=== PATIENT | female | born 1995 | race American Indian/Alaskan Native ===

== ENCOUNTER 2018-07-07 19:48 | Emergency (ER) | payer MEDICAID ==
[~2018-07-07] VITALS: Ht 157.5 cm; Wt 111.0 kg
[2018-07-07 20:12] VITALS: BP 148/111
== END 2018-07-07 22:01 | disposition home or self-care (01) ==
LOC: ER 19:49
DX: J06.9 Acute upper respiratory infection, unspecified (principal); Z88.0 Allergy status to penicillin; Z88.1 Allergy status to other antibiotic agents; Z98.890 Other specified postprocedural states
CPT/HCPCS: 99281

== ENCOUNTER 2023-08-01 18:32 | Emergency (ER) | payer MEDICAID, OTHER ==
[~2023-08-01] VITALS: Ht 160 cm; Wt 113.2 kg
[~2023-08-01 18:32] MED LIST: CLIN-214 PO
[2023-08-01 19:10] LABS: URINE HCG NEGATIVE (NEG)
[2023-08-01 19:16] LABS: BILIRUBIN,URINE NEGATIVE (Neg); CLARITY,URINE SLIGHTLY CLOUDY (Clear); COLOR,URINE YELLOW (Yellow); GLUCOSE, URINE NEGATIVE (Neg); KETONES,URINE NEGATIVE (Neg); LEUKOCYTE ESTERASE ,URINE SMALL (Neg); NITRITES, URINE NEGATIVE (Neg); OCCULT BLOOD,URINE NEGATIVE (Neg); PH,URINE 6.5 (4.8-8.0); PROTEIN,URINE NEGATIVE (Neg)
[2023-08-01 19:22] LABS: SQUAMOUS EPITHELIAL CELL,UR MANY /LPF (FEW); UA COLLECTION TYPE CLN CATCH MIDSTREAM
[2023-08-01 19:23] LABS: MUCUS STRANDS MANY /LPF (Neg); RBC,URINE NONE SEEN /HPF (0-2); WBC,URINE 20-30 /HPF (0-4)
[2023-08-01 19:24] LABS: BACTERIA,URINE 3+ /HPF (Neg)
[2023-08-01 21:53] LABS: BASOPHILS # (AUTO) 0.1 X10'3 (0-0.2); BASOPHILS % (AUTO) 0.6 % (0-1); EOSINOPHILS # (AUTO) 0.2 X10'3 (0-0.9); EOSINOPHILS % (AUTO) 2.7 % (0-6); HEMATOCRIT 44.9 % (35.0-45.0); HEMOGLOBIN 14.8 g/dl (12.0-16.0); LYMPHOCYTES # (AUTO) 2.4 X10'3 (1.1-4.8); LYMPHOCYTES % (AUTO) 27.3 % (21-51); MEAN CORPUSCULAR HEMOGLOBIN 28.9 PG (27.0-31.0); MEAN CORPUSCULAR VOLUME 87.5 FL (78-98); MEAN PLATELET VOLUME 9.5 FL (7.4-10.4); MONOCYTES # (AUTO) 0.7 X10'3 (0-0.9); MONOCYTES % (AUTO) 7.8 % (2-12); NEUTROPHILS # (AUTO) 5.5 X10'3 (1.8-7.7); NEUTROPHILS % (AUTO) 61.6 % (42-75); PLATELET COUNT 241 X10'3 (140-440); RED BLOOD COUNT 5.14 X10'6 (4.20-5.60); RED CELL DISTRIBUTION WIDTH 14.1 % (11.5-14.5)
[2023-08-01 22:11] LABS: ALANINE AMINOTRANSFERASE 37 U/L (12-78); ALBUMIN/GLOBULIN RATIO 0.8 (1.1-1.5); ALKALINE PHOSPHATASE 63 IU/L (46-116); ANION GAP 9 (8-16); ASPARTATE AMINO TRANSFERASE 25 U/L (10-37); BILIRUBIN,TOTAL 0.3 MG/DL (0.1-1.0); BLOOD UREA NITROGEN 13 MG/DL (7-18); BUN/CREATININE RATIO 14.1 (10.0-20.0); CALCIUM 9.5 MG/DL (8.5-10.1); CHLORIDE 104 MMOL/L (99-107); CREATININE 0.92 MG/DL (0.40-0.90); GLUCOSE 115 MG/DL (70-104); LIPASE 39 U/L (16-77); POTASSIUM 3.7 MMOL/L (3.5-5.1); SODIUM 140 MMOL/L (135-145); TOTAL CARBON DIOXIDE 27.1 MMOL/L (24-32); TOTAL PROTEIN 9.1 G/DL (6.4-8.2); eCRCL 75 ML/MIN; eGFR 73 ML/MIN
[2023-08-01 23:56] VITALS: TEMP 99.2
[2023-08-01] MEDS ORDERED: CEPH-585 PO (23:57)
[2023-08-02 00:11] VITALS: BP 132/99; PULSE 84; RESP 18; O2SAT 98
== END 2023-08-02 00:18 | disposition home or self-care (01) ==
LOC: ER 18:33
DX: N39.0 Urinary tract infection, site not specified (principal); Z87.81 Personal history of (healed) traumatic fracture; Z88.0 Allergy status to penicillin; Z88.1 Allergy status to other antibiotic agents; Z79.899 Other long term (current) drug therapy
CPT/HCPCS: 36415; 80053; 81001; 81025; 83690; 85025; 99283

== ENCOUNTER 2023-09-10 22:24 | Emergency (ER) | payer MEDICAID, OTHER ==
[~2023-09-10] VITALS: Ht 157.5 cm; Wt 117.8 kg
[~2023-09-10 22:24] MED LIST changes: +CEPH-585 PO
[2023-09-10 22:37] VITALS: BP 161/112; PULSE 110; RESP 18; TEMP 98; O2SAT 100
[2023-09-11 01:00] LABS: EOSINOPHILS # (AUTO) 0.2 X10'3 (0-0.9); MEAN PLATELET VOLUME 9.4 FL (7.4-10.4); RED BLOOD COUNT 4.83 X10'6 (4.20-5.60)
[2023-09-11 01:02] LABS: BASOPHILS % (AUTO) 0.4 % (0-1); EOSINOPHILS % (AUTO) 2.6 % (0-6); HEMATOCRIT 41.9 % (35.0-45.0); HEMOGLOBIN 14.2 g/dl (12.0-16.0); LYMPHOCYTES # (AUTO) 2.8 X10'3 (1.1-4.8); LYMPHOCYTES % (AUTO) 33.5 % (21-51); MEAN CORPUSCULAR HEMOGLOBIN 29.4 PG (27.0-31.0); MEAN CORPUSCULAR HGB CONC 33.9 g/dL (33.0-36.5); MEAN CORPUSCULAR VOLUME 86.8 FL (78-98); MONOCYTES # (AUTO) 0.8 X10'3 (0-0.9); MONOCYTES % (AUTO) 9.2 % (2-12); NEUTROPHILS # (AUTO) 4.5 X10'3 (1.8-7.7); NEUTROPHILS % (AUTO) 54.3 % (42-75); PLATELET COUNT 202 X10'3 (140-440); WHITE BLOOD COUNT 8.4 X10'3 (4.5-11.0)
[2023-09-11 01:05] LABS: HCG SERUM QL NEGATIVE
[2023-09-11 01:11] LABS: ALANINE AMINOTRANSFERASE 42 U/L (12-78); ALBUMIN 3.9 G/DL (3.4-5.0); ALBUMIN/GLOBULIN RATIO 0.8 (1.1-1.5); ALKALINE PHOSPHATASE 70 IU/L (46-116); ANION GAP 7 (8-16); ASPARTATE AMINO TRANSFERASE 21 U/L (10-37); BILIRUBIN,TOTAL 0.2 MG/DL (0.1-1.0); BLOOD UREA NITROGEN 15 MG/DL (7-18); BUN/CREATININE RATIO 18.3 (10.0-20.0); CALCIUM 9.2 MG/DL (8.5-10.1); CHLORIDE 107 MMOL/L (99-107); CREATININE 0.82 MG/DL (0.40-0.90); GLUCOSE 90 MG/DL (70-104); POTASSIUM 3.7 MMOL/L (3.5-5.1); SODIUM 144 MMOL/L (135-145); TOTAL CARBON DIOXIDE 29.6 MMOL/L (24-32); TOTAL PROTEIN 8.5 G/DL (6.4-8.2); eCRCL 81 ML/MIN; eGFR 83 ML/MIN
== END 2023-09-11 04:00 | disposition home or self-care (01) ==
LOC: ER 22:25
DX: M54.50 Low back pain, unspecified (principal); Z88.0 Allergy status to penicillin; Z88.1 Allergy status to other antibiotic agents; Z79.2 Long term (current) use of antibiotics
CPT/HCPCS: 36415; 72131; 80053; 84703; 85025; 99284

== ENCOUNTER 2023-12-24 08:36 | Outpatient (CLI) | payer MEDICAID, OTHER ==
[2023-12-24] MEDS ORDERED: iohexol 300mg/ml 100ml inj. ONE (09:03)
== END 2023-12-24 23:59 | disposition home or self-care (01) ==
LOC: RAD 08:36
PROVIDERS: ATTEND Family Medicine
DX: R22.1 Localized swelling, mass and lump, neck (principal)
CPT/HCPCS: 70491; J3490; Q9967

== ENCOUNTER 2025-02-17 10:30 | Emergency (ER) | payer MEDICAID, OTHER ==
[~2025-02-17] VITALS: Ht 160 cm; Wt 116.6 kg
[~2025-02-17 10:30] MED LIST changes: -CEPH-585 PO
[2025-02-17] MEDS ORDERED: SULF1TAB49 PO (11:14)
[2025-02-17] MEDS ORDERED: CEPH-585 PO (11:14)
--- NOTE | 2025-02-17 11:15 | Physician Documentation ---
History of Present Illness ~ Chief Complaint: Bite-insect Stated Complaint: INSECT BITE Time Seen by MD: 10:42 OK to notify your PCP?: Yes Primary Medical Doctor: [facility] Source: patient Mode of Arrival: POV Exam Limitations: no limitations HPI 29 year old female who is here with redness to the back of her left thigh which she states she noticed a few days ago. Patient states she is not sure if she was bit by a spider or another insect. She is currently staying in a hotel. She states that the area of redness is painful. No fever, chills, nausea. Tetanus IZ up to date. Tetanus within 5 years?: Yes (2021) Medication Reconciliation Allergies: Coded Allergies: Penicillins (Verified Allergy, Unknown, 08/01/23) amoxicillin (Verified Allergy, Unknown, 08/01/23) azithromycin (Verified Allergy, Unknown, 08/01/23) Scheduled Cephalexin*Monohydrate* (Keflex*), 1 CAP PO QID Clindamycin HCl (Clindamycin HCl CAPSULE), 1 CAP PO TID Sulfamethoxazole/Trimethoprim (Bactrim Ds Tablet), 1 TAB PO Q12H Past Medical History Past Medical History: *MUSCULOSKELETAL*, Extremity Fracture Past Surgical History: orthopedic surgeries Alcohol Use: None Drug Use: none Lives with: Family Occupation: employed Review of Systems All Other Systems at this time: Reviewed and Negative Physical Exam Vital Signs: Temperature: 98.6, Source: Oral, Heart Rate: 114, Respiratory Rate: 16, BP: 140/104, Pulse Oximetry: 98, Weight: 116.600 Oxygen Flow Rate: 0 Physical Exam General Appearance: Alert, WD/WN. NAD. HEENT: NCAT, PERRL, EOMI. Neck: Supple, trachea midline. Cardiovascular: RRR. No m/r/g. Lungs: CTAB. Breathing unlabored Extremities: Normal inspection. No edema. Skin: Warm/dry, normal color. Left hamstring there is erythematous area measuring about 6cm x 6cm in center of erythema there is area of induration measuring about 1cm in width, no fluctuance, in center of induration there is small crust. Neurological: Alert and oriented x4, normal gait. Psychiatric: Affect congruent with mood. Progress Results/Orders Results/Orders Vital Signs 02/17/25 02/17/25 10:35 11:33 Temp 98.6 98.6 Pulse 114 97 Resp 16 17 B/P (MAP) 140/104 140/86 Pulse Ox 98 99 O2 Flow Rate 0 Medical Decision Making Differential Dx:Considerations: Include: Abrasion, Allergic reaction, Anaphylaxis, Cellulitis, Contusion, Fracture, Hematoma, Insect envenomation, Laceration, Neurovascular injury, Punture wound, Retained foreign body, Urticaria Departure Time of Disposition: 11:15 Disposition: 01 HOME / SELF CARE / HOMELESS Impression: Primary Impression: Cellulitis Qualified Codes: L03.115 - Cellulitis of right lower limb Discharge Instructions: Cellulitis, Adult Additional Instructions: appears mostly cellulitic but there is induration in the center of the redness which can indicate that it is headed towards an abscess i sent antibiotics for both cellulitis and an abscess if worsening return to er, for reassess for possible I&D Referrals: NO PRIMARY CARE PROVIDER (PCP) Prescriptions Sulfamethoxazole/Trimethoprim (Bactrim Ds Tablet) 800 Mg-160 Mg Tablet 1 TAB PO Q12H for 10 Days, #20 TAB Prov: KRISTIAN ROMEO 02/17/25 Cephalexin*Monohydrate* (Keflex*) 500 Mg Capsule 1 CAP PO QID for 10 Days, #40 CAP Prov: KRISTIAN ROMEO 02/17/25 Education Educated: Patient Educated regarding: diagnosis, treatment, need for follow up Signature Scribe Signature: x Attestation: KRISTIAN Sanchez Feb 17, 2025 11:15
[2025-02-17 11:33] VITALS: BP 140/86; PULSE 97; RESP 17; TEMP 98.6; O2SAT 99
== END 2025-02-17 11:34 | disposition home or self-care (01) ==
LOC: ER 10:32
DX: L03.115 Cellulitis of right lower limb (principal); Z88.0 Allergy status to penicillin; Z88.1 Allergy status to other antibiotic agents; Z79.899 Other long term (current) drug therapy
CPT/HCPCS: 99283

== ENCOUNTER 2025-02-18 00:51 | Inpatient (IN) | payer MEDICAID, OTHER ==
[~2025-02-18] VITALS: Ht 157.5 cm; Wt 117.0 kg
[~2025-02-18 00:51] MED LIST changes: +CEPH-585 PO; +SULF1TAB49 PO
--- NOTE | 2025-02-18 00:57 | ELECTROCARDIOGRAPH REPORT ---
[facility] Test Date: 2025-02-18 Test Time: 00:53:19 Pat Name: JAI MARIANO Department: EMERGENCY ROOM Room: Gender: F Oncology Rep Specialist: CHARO : 1995 Requested By: GEOVANY FU Order Number: [id number] Reading MD: Dr. Geovany Fu Measurements Intervals [place] Rate: 132 P: 58 MT: 164 QRS: 33 QRSD: 83 T: 2 QT: 278 QTc: 412 Interpretive Statements Sinus tachycardia Probable left atrial enlargement Baseline wander in lead(s) I,II,aVR,aVF Electronically Signed On 02-18-2025 4:03:[address] Geovany Fu Please click the below link to view image of tracing.
--- NOTE | 2025-02-18 01:26 | RADIOLOGY REPORT ---
CHEST RADIOGRAPH Indication: posible infection Technique: Single frontal view of the chest was obtained COMPARISON: None FINDINGS: Lines and Tubes: None Lungs: Clear. Pleura: No effusion. No pneumothorax. Cardiomediastinal contours: Unremarkable IMPRESSION: No abnormality demonstrated.
[2025-02-18 02:12] LABS: CREATININE 0.93 MG/DL (0.40-0.90); RED CELL DISTRIBUTION WIDTH 14.1 % (11.5-14.5); TOTAL CARBON DIOXIDE 26.4 MMOL/L (24-32); eCRCL 70 ML/MIN; eGFR 71 ML/MIN
[2025-02-18 02:15] LABS: MEAN PLATELET VOLUME 9.7 FL (7.4-10.4)
--- NOTE | 2025-02-18 04:27 | Physician Documentation ---
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 Patient states her left thigh has an abscess and states the area is tender. She states that the pain from her abscess has been causing fevers, shaking chills, nausea, and palpitations. She has been on oral antibiotics for one day but she states the pain is worsening. Medication Reconciliation Allergies: Coded Allergies: Penicillins (Verified Allergy, Unknown, 02/18/25) amoxicillin (Verified Allergy, Unknown, 02/18/25) azithromycin (Verified Allergy, Unknown, 02/18/25) Scheduled Cephalexin*Monohydrate* (Keflex*), 1 CAP PO QID Clindamycin HCl (Clindamycin HCl CAPSULE), 1 CAP PO TID Sulfamethoxazole/Trimethoprim (Bactrim Ds Tablet), 1 TAB PO Q12H Past Medical History Past Medical History: *MUSCULOSKELETAL*, Extremity Fracture Past Surgical History: orthopedic surgeries Alcohol Use: None Drug Use: none Lives with: Family Occupation: employed Review of Systems All Other Systems at this time: Reviewed and Negative ROS As stated above in the HPI, otherwise all systems are reviewed and negative. Physical Exam Vital Signs: RN Vital Signs have been reviewed: Yes, Temperature: 98.4, Source: Oral, Heart Rate: 102, Respiratory Rate: 16, BP: 137/84, Pulse Oximetry: 98, Weight: 117.000 Oxygen Flow Rate: 0 Pulse Oximetry Reflects: adequate oxygenation Physical Exam General: The patient is well developed, well nourished, nontoxic appearing and is in no acute distress. Skin: [place], warm and dry with no rashes. HEENT: Head was normocephalic and atraumatic. Eyes - pupils equal, round, reactive to light and accommodation. Extraocular movements were intact. Conjunctivae were nonicteric. Ears - bilateral tympanic membranes were normal. The mouth and oropharynx were clear with moist mucous membranes. There were no pharyngeal exudates or erythema. Neck: Supple and nontender. There was no jugular venous distention, lymphadenopathy, thyromegaly or masses. Chest: Clear to auscultation bilaterally without wheezes, rales or rhonchi. No accessory muscle use. No dullness to percussion. Heart: Rate regular and rhythmic. S1, S2. No murmurs. Palpation of the chest wall was normal. No rubs or thrills. Abdomen: Soft, nontender and nondistended. Positive bowel sounds. No guarding or rebound. No hepatosplenomegaly or palpable masses. Extremities: Left thigh abscess measuring 20 by 10cm with erythemia. Center had area of induction. No cyanosis, clubbing or edema. The patient moves all extremities. Pulses were equal and symmetric. Neurologic: Cranial nerves II-XII were intact. Sensation was intact to light touch throughout. Motor strength was 5/5 in all four extremities. Deep tendon reflexes were intact in both upper and lower extremities. Psychologic: The patient was oriented to person, place and time. The patient demonstrated appropriate judgement and insight. Procedures Procedures Incision and drainage was performed at this time. Abscess was present on the back of the left thigh. Lidocaine with epi 2cc was applied to the site. Deep abscess with loculations was drained resulting in the removal of 3cc of fluid being drained. Abscess was packed. Patient tolerated the procedure well. Progress Progress Note 0517: The case was discussed with the hospitalist who kindly agreed to admission. Results/Orders Results/Orders Orders - JOSE COUGHLIN MD Electrocardiogram (02/18/25 00:55) Culture Blood (02/18/25 01:02) Chest,Single View (02/18/25 01:02) Monitor (02/18/25 01:02) Oxygen (02/18/25 01:02) Saline Lock (02/18/25 01:02) Cult [place]sa Screen (02/18/25 01:02) Straight Cath For Urine Sample (02/18/25 01:02) Normal Saline 1000ml (0.9% Sodium Chlori (02/18/25 04:45) Page Hospitalist (02/18/25 04:46) Fill Out Med Reconciliation (02/18/25 04:46) Completed Orders - JOSE COUGHLIN MD Electrocardiogram (02/18/25 00:55) Cbc/Diff (02/18/25 01:02) Urinalysis, Cult If Indicated (02/18/25 01:02) Chest,Single View (02/18/25 01:02) Procalcitonin (02/18/25 01:02) BMP (02/18/25 01:02) Lacticsepsis (02/18/25 01:02) C-Reactive Protein (02/18/25 01:02) Drug Screen, Urine (02/18/25 04:25) Potassium Cl Sr Tablet (K-Dur Tablet) (02/18/25 04:25) Magnesium Oxide Tablet (Mag-Ox 400mg Tab (02/18/25 04:25) Ethanol (02/18/25 01:12) MG (02/18/25 01:12) Vancomycin/Ns 1 Gm Add-[place] (Vancomyc (02/18/25 04:45) Ceftriaxone 2gm/D5w 50ml Bag (Rocephin 2 (02/18/25 04:45) Hydromorphone 1 Mg/Ml/Pf (Dilaudid Inj.) (02/18/25 04:45) Lidocaine 1% W/Epi 1:100,000 (Xylocaine (02/18/25 04:55) Normal Saline 1000ml (0.9% Sodium Chlori (02/18/25 05:20) Medications Received in ER Medications (Trade) Dose Ordered Sig/Inder Route PRN Reason Start Time Stop Time Status Last Admin Dose Admin (K-DUR tablet) 40 meq ONCE STAT PO 02/18/25 04:25 02/18/25 04:38 DC 02/18/25 04:41 40 MEQ (mag-Ox 400mg tablet) 400 mg ONCE ONCE PO 02/18/25 04:25 02/18/25 04:27 DC 02/18/25 04:41 400 MG Vancomycin HCl 250 ml @ 166 mls/hr ONCE ONCE IV 02/18/25 04:45 02/18/25 06:15 DC 02/18/25 05:13 166 MLS/HR Ceftriaxone Sodium/Dextrose 50 ml @ 100 mls/hr ONCE ONCE IV 02/18/25 04:45 02/18/25 05:14 DC 02/18/25 05:13 100 MLS/HR (Xylocaine 1%-EPI 1:100,000) 20 ml ONCE ONCE SQ 02/18/25 04:55 02/18/25 04:56 DC 02/18/25 05:14 20 ML Sodium Chloride 1,000 ml @ 2,000 mls/hr ONCE ONCE IV 02/18/25 05:20 02/18/25 05:49 DC 02/18/25 05:22 2,000 MLS/HR Vital Signs 02/18/25 02/18/25 02/18/25 00:57 04:11 04:13 Temp 100.1 98.4 Pulse 135 102 Resp 20 18 16 B/P (MAP) 157/107 137/84 (101) Pulse Ox 98 98 O2 Flow Rate 0 Laboratory Tests Test 02/18/25 01:12 02/18/25 04:25 White Blood Count 13.2 H Red Blood Count 4.77 Hemoglobin 13.7 Hematocrit 40.5 Mean Corpuscular Volume 84.8 Mean Corpuscular Hemoglobin 28.7 Mean Corpuscular Hemoglobin Concent 33.8 Red Cell Distribution Width 14.1 Platelet Count 219 Mean Platelet Volume 9.7 Neutrophils (%) (Auto) 68.4 Lymphocytes (%) (Auto) 20.9 L Monocytes (%) (Auto) 9.2 Eosinophils (%) (Auto) 1.2 Basophils (%) (Auto) 0.3 Neutrophils # (Auto) 9.1 H Lymphocytes # (Auto) 2.8 Monocytes # (Auto) 1.2 H Eosinophils # (Auto) 0.2 Basophils # (Auto) 0.0 CBC Comment Sodium Level 139 Potassium Level 3.4 L Chloride Level 103 Carbon Dioxide Level 26.4 Anion Gap 10 Blood Urea Nitrogen 13 Creatinine 0.93 H Estimated GFR/1.73 m2 71 BUN/Creatinine Ratio 14.0 Glucose Level 140 H Lactic Acid Level 1.4 Calcium Level 8.9 Magnesium Level 1.9 C-Reactive Protein 6.21 H Albumin 3.7 Procalcitonin < 0.05 Chemistry Comments Ethyl Alcohol Level < 10 Urine Specimen Description Cln catch midstream Urine Color Yellow Urine Clarity Clear Urine pH 6.0 Urine Specific [place] 1.025 Urine Protein Negative Urine Glucose (UA) Negative Urine Ketones Negative Urine Occult Blood Negative Urine Nitrite Negative Urine Bilirubin Negative Urine Urobilinogen 0.2 Urine Leukocyte Esterase Negative Urine Culture Indicated Not ind Volume Urine Centrifuged 10 ml Urine Comment Urine Opiates Screen Negative Urine Methadone Screen Negative Urine Fentanyl Screen Negative Urine Barbiturates Screen Negative Urine Phencyclidine Screen Negative Urine Amphetamines Screen Negative Urine Benzodiazepines Screen Negative Urine Cocaine Screen Negative Urine Cannabinoids Screen Negative Drug Screen Comment Microbiology Date/Time Source Procedure Growth Status 02/18/25 02:06 Blood Hand Right Blood Culture - Preliminary NEGATIVE (LESS THAN 24 HOURS) Resulted Re-Evaluation Re-Evaluation : Re-Evaluation: Unchanged Additional Comment Patient was seen and examined. Patient is given reassurance. Patient was just treated for cellulitis abscess started antibiotics after taking antibiotics she states the pain was getting progressively worse now she was having some shaking chills and now fevers. She does not feel well she came in for evaluation. The patient laboratory work was obtained. Patient did have a temperature of 100.1 and was tachycardic heart rate 135 somewhat concerning for bacteremia or sepsis CBC WBC shows an elevated white count with a left shift. WBC 13.2 and 68.4 neutrophils. Chemistry shows some slight low potassium at 3.4 magnesium was then added who 1.9 C-reactive protein elevated at 6.21 with the lactic acid is normal at 1.4 and procalcitonin is negative. Tox screen was negative alcohol negative. Urinalysis was reassuring with a specific gravity of 1.025. Patient then received Rocephin and vancomycin for failed outpatient therapy. Fluids were also given 2 L ultimately was given she never was hypotensive so septic shock was not present. Patient was then admitted to the hospitalist service to rule out bacteremia and a treat the patient with antibiotics for failed outpatient therapy. Continuous equipment monitor phototypesetting interpretation shows sinus tachycardia heart rate 130s, abnormal, my interpretation. Pulse oximetry monitor interpretation shows normal oxygenation at 98% room air, normal, my interpretation. EKG/XRAY/CT/US/VASC/MRI EKG : Additional Comment [facility] Test Date: 2025-02-18 Test Time: 00:53:19 Pat Name: JAI MARIANO Department: EMERGENCY ROOM Room: Gender: F Emt P: CHARO : 1995 Requested By: JOSE COUGHLIN Order Number: [id number] Reading MD: Dr. Jose Coughlin Measurements Intervals [place] Rate: 132 P: 58 HI: 164 QRS: 33 QRSD: 83 T: 2 QT: 278 QTc: 412 Interpretive Statements Sinus tachycardia Probable left atrial enlargement Baseline wander in lead(s) I,II,aVR,aVF Electronically Signed On 02-18-2025 4:03:[address] Jose Coughlin Please click the below link to view image of tracing. EKG Date and Time:02/18/25 0053 Electronically Signed by: JOSE COUGHLIN MD Date and Time: 02/18/25 0403 Chest X-Ray : Additional Comments CHEST RADIOGRAPH Indication: posible infection Technique: Single frontal view of the chest was obtained COMPARISON: None FINDINGS: Lines and Tubes: None Lungs: Clear. Pleura: No effusion. No pneumothorax. Cardiomediastinal contours: Unremarkable IMPRESSION: No abnormality demonstrated. Electronically Signed by:DHAVAL NORMAN MD Date & Time: 02/18/25 0124 Medical Decision Making Additional info obtained from: old records Differential Dx:Considerations: Include: angina / CA, atrial dysrhythmia, atrial fibrillation, atrial flutter, MAT, PACs, PSVT, sinus tachycardia, WPW, 1st degree AV block, 2nd degree AVB-type 1, 2nd degree AVB-type 2, 3rd degree AV block, PVCs, torsades de pointes, ventricular fibrillation, ventricular tachycardia, other Differential Dx:Considerations: Include anxiety/panic attack, Include digoxin toxicity, Include electrolyte disorder, Include heart failure, Include hyperthyroidism, Include hyperventilation, Include hypoxia, Include pacemaker malfunction, Include pulmonary embolus, Include renal failure, Include other Departure Time of Disposition: 05:17 Disposition: 09 ADMITTED INPATIENT Admitted to Inpatient Unit: yes, to hospitalist Admission Level of Care: Med/Surg with Tele Impression: Primary Impression: Cellulitis Qualified Codes: L03.115 - Cellulitis of right lower limb Additional Impressions: Bacteremia Complex I&D Condition: Guarded Referrals: NO PRIMARY CARE PROVIDER (PCP) Education Educated: Patient Educated regarding: diagnosis, need for follow up Signature Scribe Signature: Scribed for Jose Coughlin MD by Aristides Larson . 02/18/25 04:45 Attestation: The note accurately reflects work and decisions made by me.Jose Coughlin MD 02/18/25 04:27 JOSE COUGHLIN MD Feb 18, 2025 04:27 ARISTIDES KAUR Feb 18, 2025 04:46
[2025-02-18] MEDS: potassium Cl 20 mEq SR tablet PO STA (04:41)
[2025-02-18 04:45] LABS: LEUKOCYTE ESTERASE ,URINE NEGATIVE (Neg); NITRITES, URINE NEGATIVE (Neg); OCCULT BLOOD,URINE NEGATIVE (Neg)
[2025-02-18 04:50] LABS: UA COLLECTION TYPE CLN CATCH MIDSTREAM
[2025-02-18 04:56] LABS: ETHANOL < 10 MG/DL (<10)
[2025-02-18 05:06] LABS: URINE AMPHETAMINE SCREEN NEGATIVE (Neg); URINE BARBITUATE SCREEN NEGATIVE (Neg); URINE BENZODIAZEPINES SCREEN NEGATIVE (Neg); URINE CANNABINOID SCREEN NEGATIVE (Neg); URINE COCAINE SCREEN NEGATIVE (Neg); URINE METHADONE SCREEN NEGATIVE (Neg); URINE OPIATE SCREEN NEGATIVE (Neg); URINE PHENCYCLIDINE SCREEN NEGATIVE (Neg)
[2025-02-18] MEDS: NORMAL SALINE IV ONE (05:13)
[2025-02-18] MEDS: CefTRIAXone 2gm/D5W 50ml BAG 50 ML IV ONE (05:13)
[2025-02-18] MEDS: vancomycin/NS 1 GM ADD-VANTAGE 250 ML IV ONE (05:13)
[2025-02-18] MEDS: LIDOcaine 1% W/epiNEPHrine 1:100,000 20ml vial SQ ONE (05:14)
[2025-02-18] MEDS: normal saline 1000ml 1,000 ML IV ONE (05:22)
[2025-02-18] MEDS ORDERED: potassium Cl 40MEQ/1/2NS 520ml 520 ML IV PRN (05:30)
[2025-02-18] MEDS: normal saline 1000ml 1,000 ML IV SCH (05:30)
[2025-02-18] MEDS ORDERED: HYDROcodone/acetaminophen 5mg/325mg tablet PO PRN (05:30)
[2025-02-18] MEDS ORDERED: magnesium sulf-water 2g/50mL 50 ML IV PRN (05:30)
[2025-02-18] MEDS ORDERED: mag hydrox/Alum hydrox/simeth 30ml oral suspension PO PRN (05:30)
[2025-02-18] MEDS ORDERED: magnesium Cl slow-release 64mg tablet PO PRN (05:30)
[2025-02-18] MEDS ORDERED: magnesium sulf-water 4G/100mL 100 ML IV PRN (05:30)
[2025-02-18] MEDS ORDERED: potassium Cl 20 mEq SR tablet PO PRN ×2 (05:30)
[2025-02-18] MEDS ORDERED: ondansetron/PF 4mg/2ml inj IV PRN (05:30)
[2025-02-18] MEDS ORDERED: HYDROcodone/acetaminophen 10/325mg tab PO PRN (05:30)
[2025-02-18] MEDS ORDERED: magnesium hydroxide 30ml (MOM) UD suspension PO PRN (05:30)
--- NOTE | 2025-02-18 06:48 | HISTORY AND PHYSICAL-Residence ---
History & Physical Providers to CC Resident Creating Document: GITA BANKS RES ~ History of Present Illness Primary Medical Doctor: NE[facility]I [facility] Reason for Admit\Complaint: CELLULITIS OF THE LEFT THIGH BUTTOCK History of Present Illness 29-year-old female with history of hypertension not on any medications presented to the ED with chief complaints of abscess on the left buttock since the past two days. She has tried oral antibiotics for one day but mentioned that the pain is worsening and hence decided to come to the ED. She states she has associated fever, headache and chills. Denies history of trauma or bug bites. Denies chest pain, dizziness, shortness of breath, diarrhea, constipation, nausea or vomiting. Denies smoking or alcohol use. No recreational drug use. Discussed advanced care directives and she wishes to be a full code. Allergies: Coded Allergies: Penicillins (Verified Allergy, Unknown, 02/18/25) amoxicillin (Verified Allergy, Unknown, 02/18/25) azithromycin (Verified Allergy, Unknown, 02/18/25) Home Medications Home Medications Active Bactrim Ds Tablet (Sulfamethoxazole/Trimethoprim) 800 Mg-160 Mg Tablet 1 Tab PO Q12H 10 Days Keflex* (Cephalexin HCl) 500 Mg Capsule 1 Cap PO QID 10 Days Clindamycin HCl CAPSULE (Clindamycin HCl) 150 Mg Capsule 1 Cap PO TID Past Medical History Past Medical History Hypertension Past Surgical History Surgical History Comment Ankle surgery Past Social History Alcohol Use: None Drug Use: None Lives with: Family Occupation: employed ROS All Other Systems: Reviewed and Negative ROS Reviewed in full. All negative except for pertinent positive HPI. Exam Vitals: Vital Signs Date Time Temp Pulse Resp B/P (MAP) Pulse Ox O2 Delivery O2 Flow Rate FiO2 02/18/25 06:21 98.9 103 15 145/82 (103) 98 0 General: General: Awake and Alert, no acute distress. HEENT: Conjunctiva pink, Sclera clear, Mucus Membranes moist. Neck: Supple without masses and tenderness. Resp: Unlabored. Equal breath sounds bilaterally. Heart: Regular rhythm, normal S1 and S2, no rub, murmur or gallop. Abdomen: Soft and non tender no organomegaly. Normal bowel sounds x4 quadrant normoactive. No guarding or rigidity. Extremities: Normal range of motion. No edema. 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 Skin: Erythema and edema on the medial side of the left buttock and thigh. Abscess present on the medial side of the left thigh. No active purulent drainage noted. Diagnostic Data Last Recorded Lab Results: 02/18/2511102/18/25111 Advance Care Planning Advanced Care plannin - 30 Minutes Additional Plan 29-year-old female with history of hypertension not on any medications presented to the ED with chief complaints of abscess on the left buttock since the past two days. Cellulitis of the medial left thigh and buttock Used one day of oral antibiotic outpatient, she had worsening pain and hence came to the ED Leukocytosis, procalcitonin and lactic acid within normal limits Received 2 L fluid bolus in the ED Received vanc and ceftriaxone in the ED Also had I and D done by Dr. Coughlin Continue IV vancomycin Follow up with wound cultures Wound care consulted Hypertension not on any home medications Started lisinopril 10 p.o. daily Awaiting med rec Code Status: Full code Disposition: Continue medical management. Gita Banks MD. IM Resident PGY-3 Pt was seen and discussed with the resident team Appears a bit dehydrated and tachy Will check if diabetic with A1C Said to have a hx of MRSA in the past so will suggest vancomycin IV in the interim pending further results ER attending would drain the abscess Thank you Date of Service: Feb 18, 2025 Billing Provider: ALEKSANDAR WILLSON MD, ELIZABETH, RES Feb 18, 2025 06:48 ALEKSANDAR WILLSON MD Feb 18, 2025 08:05
[2025-02-18 07:25] VITALS: BP 116/72; PULSE 105; RESP 16; TEMP 98.4; O2SAT 98
[2025-02-18] MEDS: K and/or MAG REPLACEMENT MC SCH (07:39)
[2025-02-18] MEDS: docusate sod 100mg capsule PO SCH (08:00)
[2025-02-18] MEDS: enoxaparin 40mg/0.4ml syringe SUBCUT SCH (08:00)
[2025-02-18 10:00] VITALS: BP 130/82; PULSE 114; RESP 16; TEMP 99.5; O2SAT 99
[2025-02-18 11:19] LABS: URINE HCG NEGATIVE (NEG)
[2025-02-18] MEDS: vancomycin/NS 1 GM ADD-VANTAGE 250 ML IV SCH (13:19)
[2025-02-18 13:32] VITALS: RESP 16
[2025-02-18] MEDS ORDERED: iohexol 300mg/ml 100ml inj. ONE (14:46)
--- NOTE | 2025-02-18 16:10 | RADIOLOGY REPORT ---
Procedure: CT CT LOWER EXTREMITY W/ IV CONTRAST 02/18/2025 03:05 PM Indication: abscess, sepsis Comparison Study: None Technique: Following IV administration of 100 mL Omnipaque 300 Axial images were obtained and reform atted in coronal and sagittal planes. All CT scans at this medical facility are performed using dose modulation techniques as appropriate to a performed exam including the following: Automated exposure control was utilized; adjustment of the MA and/or KV according to patient size; and use of iterative reconstruction technique. CT Dose: CTDI volume is 17.8 mGy. Dose-length product is 1106 mGy*cm FINDINGS: Bones: No evidence of lytic or blastic lesions of bone. No evidence of cortical destruction of the fe mur or periostitis. Soft tissues: There is an area of ill-defined inflammatory change in the subcutaneous fat in the uppe r posterior left thigh. No well-defined abscess is present. The muscle planes are intact and there i s no evidence of abscess within the muscle. IMPRESSION: 1. There is cellulitis in the upper posterior left thigh. A well-defined abscess is not seen. Inflamm ation does not extend to the deep muscle planes. 2. Question of a 1-2 mm radiopaque foreign body in the skin at the inflammation site
[2025-02-18] MEDS ORDERED: piperacillin/tazo 3.375gm/50ml 50 ML IV ONE (17:50)
[2025-02-18] MEDS: ringers solution, lacted 1,000 ML IV SCH (17:50)
[2025-02-18 18:00] VITALS: BP 130/70; PULSE 115; RESP 15; TEMP 98.2; O2SAT 99
[2025-02-18] MEDS: metroNIDAZOLE-Flagyl 500mg/NS 100 ML IV ONE (20:41)
[2025-02-19] MEDS ORDERED: piperacillin/tazo 3.375gm/50ml 50 ML IV SCH
[2025-02-19] MEDS: metroNIDAZOLE-Flagyl 500mg/NS 100 ML IV SCH (01:43)
[2025-02-19] MEDS: VANCOMYCIN LEVEL IV ONE (04:30)
[2025-02-19 06:04] LABS: MEAN PLATELET VOLUME 9.5 FL (7.4-10.4); RED CELL DISTRIBUTION WIDTH 14.5 % (11.5-14.5)
[2025-02-19 06:41] LABS: CREATININE 0.71 MG/DL (0.40-0.90); PHOSPHORUS 3.6 MG/DL (2.3-4.5); TOTAL CARBON DIOXIDE 25.9 MMOL/L (24-32); eCRCL 92 ML/MIN; eGFR > 90 ML/MIN
[2025-02-19 07:22] VITALS: BP 122/80; PULSE 98; RESP 20; TEMP 99.1; O2SAT 100
[2025-02-19] MEDS: carvedilol 6.25mg tablet PO SCH (08:00)
[2025-02-19] MEDS: CefTRIAXone 2gm/D5W 50ml BAG 50 ML IV SCH (08:02)
--- NOTE | 2025-02-19 08:30 | CONSULTATION REPORT ---
History of Present Illness Providers to CC ~ Reason for Admit\Admit Dx: CELLULITIS OF THE LEFT THIGH BUTTOCK Refering MD: Dr Gonzáles History of Present Illness The patient is a 29-year-old female who presented in the other day with a abscess in the left posterior thigh buttock region. She underwent procedure in the emergency room where a 3 cc of fluid were expressed and a small packing was placed. She then had a CT scan. The scan showed no abscess but just cellulitis and a 1-2 mm radiopaque foreign body. She states she feels a lot better since her procedure and having been on antibiotics Allergies: Coded Allergies: Penicillins (Verified Allergy, Severe, THROAT SWELLS UP, 02/18/25) TOLERATED ROCEPHIN 02/18/25 amoxicillin (Verified Allergy, Severe, THROAT SWELLS UP, 02/18/25) TOLERATED ROCEPHIN 02/18/25 azithromycin (Verified Allergy, Unknown, 02/18/25) Home Medications Home Medications Active Physical Exam Last Vital Signs Recorded: Temperature: 99.1, Source: Temporal, Heart Rate: 98, Respiratory Rate: 20, BP: 122/80, Pulse Oximetry: 100, Weight: 117.000 General Appearance: alert, no apparent distress General Appearance The patient is morbidly obese Extremities I examined the patient today accompanied by Dr. Ruben Gonzales from general surgery. Left posterior upper thigh region there is a dressing with a small iodoform packing which was removed. There is a 4-5 cm circumferential area of the brawny edema and some fluid was expressed with squeezing that area there was no surrounding tenderness. She was moving her leg well. Neuro exam is intact. Results Results/Orders Results/Orders CT scan was reviewed. The small radiopaque foreign body was the iodoform. There was no abscess in the deeper tissues Diagram Lab Result Diagram: 02/19/25 0525 02/19/25 0525 Assessment/Plan Problems/Diagnosis: (1) Cellulitis Additional Plan Recommended two to 3 times a day tub soaks with Epsom salts preferably to help draw the fluid. Continue antibiotics and the patient should do well with no further intervention. Problem Qualifiers (1) Cellulitis: Qualified Codes: L03.116 - Cellulitis of left lower limb KHADIJAH ALBA Jr., MD Feb 19, 2025 08:30
[2025-02-19 08:38] VITALS: RESP 16
[2025-02-19] MEDS ORDERED: CARV3.122 PO (10:39)
[2025-02-19] MEDS ORDERED: CEFD300C3 PO (10:39)
[2025-02-19] MEDS ORDERED: CLIN-224 PO (10:39)
[2025-02-19 11:00] VITALS: BP 125/87; PULSE 104; RESP 20; TEMP 98.3; O2SAT 100
--- NOTE | 2025-02-19 12:18 | DISCHARGE SUMMARY ---
Discharge Summary Providers to CC ~ Discharge Summary Admission Diagnosis: cellulitis, sepsis Hospital Course DATE OF ADMISSION: 02/18/25 DATE OF DISCHARGE: 02/19/25 Discharge Diagnosis\\Comment: Cellulitis, posterior left upper thigh Hypokalemia MEGHNA- unable to exclude Operations\\Procedures: s/p I&D Consultants: Orthopedic surgeon Sang Ferguson Complications: None Condition on DC: Stable New Medications: Carvedilol (Carvedilol) 3.125 Mg Tablet 1 TAB PO Q12H for 7 Days, #14 TAB 0 Refills Cefdinir (Cefdinir) 300 Mg Capsule 1 CAP PO Q12H for 7 Days, #14 CAP 0 Refills Clindamycin HCL* (Clindamycin HCL*) 300 Mg Capsule 1 CAP PO Q6H for 7 Days, #28 CAP Discharge Summary: History of Present Illness From H&P: "29-year-old female with history of hypertension not on any medications presented to the ED with chief complaints of abscess on the left buttock since the past two days. She has tried oral antibiotics for one day but mentioned that the pain is worsening and hence decided to come to the ED. She states she has associated fever, headache and chills. Denies history of trauma or bug bites. Denies chest pain, dizziness, shortness of breath, diarrhea, constipation, nausea or vomiting. Denies smoking or alcohol use. No recreational drug use." Hospital Course Patient underwent I&D and packing in ED. Diagnostic findings were notable for EKG revealing sinus tachycardia at 132bpm, leukocytosis, low-grade fever, CT revealing cellulitis in the upper posterior left thigh without evidence of abscess. There was an evidence of 1-2mm radiopaque foreign body in the skin at the inflammation site. Pertinent negative findings were negative UDS, normal lactic acid, negative procal, negative chest x-ray, urinalysis negative for urinary tract infection. Patient was treated with bolus intravenous fluids followed by continuous fluids and empirical antibiotics. Orthopedic surgeon Dr. Goode was consulted and recommended antibiotics and wound care. Patient did not experience further complications throughout the entire hospital stay. Thais ceballos was seen and examined on the day of discharge. Patient recovered earlier than expected and feels ready to be discharged. On day of discharge, vss and labs unremarkable. All labs, diagnostic workups, discharge plan discussed with patient in details during visit before discharge. All questions and concerns answered to the best of my professional knowledge. Patient is to be discharged to home to self with a course of antibiotics and to follow up with PCP within 2 weeks. Patient is referred to wound care clinic upon discharge. Physical Exam General: A&Ox 3, NAD HEENT: Normocephalic, PERRLA Neck: Supple, trachea midline, no JVD Chest: Clear to auscultation bilaterally Cardiovascular: RRR, S1&S2 GI: Soft and nontender Extremities: No cyanosis/clubbing/or edema SINGING MESSENGER: CN II-XII intact, no focal deficits Musculoskeletal: No paraspinal muscle tenderness, no muscle spasm Skin: Left posterior upper thigh ulceration *Problems/Diagnosis: (1) Cellulitis Status: Acute Total Time Spent on D/C: > 30 Minutes Date of Service: Feb 19, 2025 Billing Provider: DEIDRA SCHULTZ Common Visit Codes: 59519-DUW/OBS DISCH DAY >30min Problem Qualifiers (1) Cellulitis: Qualified Codes: L03.116 - Cellulitis of left lower limb DEIDRA SCHULTZ Feb 19, 2025 12:17
[2025-02-19] MEDS ORDERED: VANCOmycin 1250MG/NS 250ml Bag 250 ML IV SCH (13:00)
[2025-02-20] MEDS ORDERED: VANCOMYCIN LEVEL IV ONE (12:30)
== END 2025-02-19 13:46 | disposition home or self-care (01) | DRG 383 ==
LOC: ER 00:51 → ED HOLD 05:27 → EDBEDREQ 06:04 → SUR 3N 07:29
PROVIDERS: ADMIT Internal Medicine; ATTEND Nurse Practitioner Family
PROC: 0H9JXZZ Drainage of Left Upper Leg Skin, External Approach (ICD-10-PCS; principal; 2025-02-18)
PROC: BQ2S1ZZ Computerized Tomography (CT Scan) of Left Lower Extremity using Low Osmolar Contrast (ICD-10-PCS; 2025-02-18)
DX: L03.116 Cellulitis of left lower limb (principal); N17.9 Acute kidney failure, unspecified; R78.81 Bacteremia; L03.115 Cellulitis of right lower limb; E87.6 Hypokalemia; I10 Essential (primary) hypertension; L02.31 Cutaneous abscess of buttock
CPT/HCPCS: 10060; 36415; 71045; 73701; 80048; 80202; 80305; 80320; 81003; 81025; 83605; 83735; 84100; 84132; 84145; 85025; 86140; 87040; 87070; 87077; 87081; 87186; 93005; 96374; 96375; 99285; A4349; A6212; G0378; J0696; J3373; J3490; J7030; Q9967